=== PATIENT | male | born 1995 | race Caucasian/White ===

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

== ENCOUNTER 2017-03-29 18:19 | Inpatient (IN) | payer OTHER ==
[~2017-03-29] VITALS: Ht 172.7 cm; Wt 58.2 kg
[2017-03-29 18:56] LABS: POTASSIUM 3.5 mEq/L (3.7-5.4)
[2017-03-29 19:05] LABS: MCH 30.8 PG (29.0-34.0); MCHC 33.9 G/DL (30.0-36.0); MCV 90.7 FL (86-99); MEAN PLAT.VOLUME 11.8 uM^3 (9.0-12.4); PLATELET COUNT 163 K/uL (156-360); RBC DIS.WIDTH-CV 12.3 % (11.8-14.6); RBC DIS.WIDTH-SD 40.5 % (39-53); RED BLOOD COUNT 4.52 M/uL (4.00-5.50); WHITE BLOOD COUNT 8.2 K/uL (4.1-10.2)
[2017-03-29 19:14] LABS: CHLORIDE 105 mEq/L (99-109); POTASSIUM 3.6 mEq/L (3.7-5.4); SODIUM 140 mEq/L (136-147)
[2017-03-29 19:16] LABS: GLUCOSE 96 mg/dL (70-99)
[2017-03-29 19:17] LABS: ANION GAP 13 MEQ/L (2-14)
[2017-03-29 19:18] LABS: TOTAL BILIRUBIN 0.4 mg/dL (0.0-1.0)
[2017-03-29 19:19] LABS: SERUM ETHYL ALCOHOL < 10 mg/dL
[2017-03-29 19:20] LABS: GFR ESTIMATE (CALCULATED) > 59 mL/min/ (58.99-99999)
[2017-03-29 19:21] LABS: ALKALINE PHOSPHATASE 147 IU/L (3-129)
[2017-03-29 19:22] LABS: UREA NITROGEN (BUN) 14 mg/dL (9-23)
[2017-03-29 19:23] LABS: SALICYLATE < 5.0 MG/DL (15-30)
[2017-03-29 20:00] LABS: MAGNESIUM 2.3 mg/dL (1.3-2.7)
[2017-03-29 22:57] LABS: BASE EXCESS 5.8 mEq/L (-3 to +3); BICARBONATE 29.8 mEq/L (22-26); CARBOXY HGB 3.7 % (0-5); COMMENTS - BLOOD GASES C+A+; DEVICE NC; METHEMOGLOBIN 0.9 % (0-1.5); O2 FLOW 3 L/MIN; PCO2 40 mm Hg (35-45); PO2 155 mm Hg (80-100); SITE RR; pH 7.48 (7.35-7.45)
[2017-03-30] VITALS (12 sets, daily range): BP systolic 79–123; BP diastolic 58–74
[2017-03-30 00:39] LABS: TROP-I INTERPRETATION NEGATIVE; TROPONIN-I < 0.01 ng/mL (0.0-0.30)
[2017-03-30] MEDS ORDERED: GABAPENTIN400 MG PO (00:51)
[2017-03-30] MEDS ORDERED: LAMOTRIGINE150 MG PO (00:52)
[2017-03-30] MEDS ORDERED: WELLBUTRIN XL150 MG PO (00:52)
[2017-03-30] MEDS ORDERED: CYMBALTA60 MG PO (00:54)
[2017-03-30] MEDS ORDERED: PROMETHAZINE HC25 M1 PO (00:56)
[2017-03-30] MEDS ORDERED: AMBIEN10 MG PO (00:57)
[2017-03-30] MEDS ORDERED: BUTALB-APAP-CA1 EACH PO (00:58)
[2017-03-30] MEDS ORDERED: METHADONE H5 MG/5 ML PO (01:01)
[2017-03-30 01:28] LABS: AMPHETAMINES QUANT VALUE 0 NG/ML; BARBITUATES QUANT VALUE 0 NG/ML; BENZODIAZEPINES QUANT VALUE 0 NG/ML; BENZODIAZEPINES, URINE SCREEN Negative (200 ng/mL); MARIJUANA QUANT VALUE 0 NG/ML; OPIATES QUANTITATIVE VALUE 0 NG/ML; PHENCYCLIDINE QUANT VALUE 0 NG/ML
[2017-03-30 04:45] LABS: HEMATOCRIT 33.6 % (38.0-50.0); MCH 30.2 PG (29.0-34.0); MCHC 33.3 G/DL (30.0-36.0); MCV 90.6 FL (86-99); RBC DIS.WIDTH-CV 12.3 % (11.8-14.6); RED BLOOD COUNT 3.71 M/uL (4.00-5.50); WHITE BLOOD COUNT 5.1 K/uL (4.1-10.2)
[2017-03-30 04:51] LABS: CHLORIDE 105 mEq/L (99-109); SODIUM 146 mEq/L (136-147)
[2017-03-30 04:53] LABS: GLUCOSE 100 mg/dL (70-99)
[2017-03-30 04:54] LABS: ANION GAP 8 MEQ/L (2-14)
[2017-03-30 04:57] LABS: GFR ESTIMATE (CALCULATED) > 59 mL/min/ (58.99-99999)
[2017-03-30 04:58] LABS: UREA NITROGEN (BUN) 8 mg/dL (9-23)
[2017-03-30 05:58] LABS: MEAN PLAT.VOLUME 11.5 uM^3 (9.0-12.4); PLAT.SUFFICIENCY DECREASED
[2017-03-30 06:01] LABS: PLATELET COUNT 111 K/uL (156-360)
[2017-03-30 10:11] LABS: METH RESISTANT S AUREUS PCR NEGATIVE (NEGATIVE)
[2017-03-30 10:27] LABS: PROBE CHECK PASS; SPECIMEN PROCESSING CONTROL PASS
[2017-03-31] VITALS: BP 123/65
[2017-03-31 04:00] VITALS: BP 116/62
[2017-03-31 07:00] VITALS: BP 128/80
[2017-03-31 09:22] LABS: ANION GAP 3 MEQ/L (2-14); CHLORIDE 109 MEQ/L (99-109); POTASSIUM 3.4 MEQ/L (3.7-5.4); SAMPLE HEMOLYSIS CHECK 0; SAMPLE ICTERIC CHECK 0; SAMPLE LIPEMIA CHECK 0; SODIUM 141 MEQ/L (136-147)
[2017-03-31 09:28] LABS: GFR ESTIMATE (CALCULATED) > 59 mL/min/ (58.99-99999); GLUCOSE 89 mg/dL (70-99); UREA NITROGEN (BUN) 5 mg/dL (9-23)
[2017-03-31 11:00] VITALS: BP 117/72
[2017-03-31 12:00] VITALS: BP 117/72
== END 2017-03-31 13:59 | disposition home or self-care (01) | DRG 918 ==
LOC: EME 18:19 → 4WEST 23:10 → EDOF 23:10 → ENRESERV 23:11 → EDOF 03-30 05:06 → 4WEST 03-30 06:51 → ENRESERV 03-30 06:53 → 4WEST 03-30 07:52 → ENRESERV 03-30 21:07 → CANRESERV 03-31 10:26 → ENRESERV 03-31 10:26 → 4WEST 03-31 13:59
PROVIDERS: Emergency Medicine; Hospitalist; Internal Medicine
DX: T50.901A Poisoning by unspecified drugs, medicaments and biological substances, accidental (unintentional), initial encounter (principal); F11.20 Opioid dependence, uncomplicated; F31.9 Bipolar disorder, unspecified; F41.9 Anxiety disorder, unspecified; Q25.1 Coarctation of aorta; F41.8 Other specified anxiety disorders; K21.9 Gastro-esophageal reflux disease without esophagitis; Z91.19 Patient's noncompliance with other medical treatment and regimen; F17.200 Nicotine dependence, unspecified, uncomplicated; J45.909 Unspecified asthma, uncomplicated; Z81.8 Family history of other mental and behavioral disorders
CPT/HCPCS: 36600; 71010; 80047; 80048; 80053; 80175 90; 80306 90; 82800; 82803; 83605; 83735; 84484; 85027; 87641; 93005; 99281; 99285; G0480; J1650; J3480; J7030; J7070

== ENCOUNTER 2017-04-01 16:54 | Emergency (ER) | payer OTHER ==
[~2017-04-01] VITALS: Ht 175.3 cm; Wt 60.4 kg
[~2017-04-01 16:54] MED LIST changes: +AMBIEN10 MG PO; +BUTALB-APAP-CA1 EACH PO; +CYMBALTA60 MG PO; +GABAPENTIN400 MG PO; +LAMOTRIGINE150 MG PO; +METHADONE H5 MG/5 ML PO; +PROMETHAZINE HC25 M1 PO; +WELLBUTRIN XL150 MG PO
[2017-04-01 19:18] LABS: EOSINOPHIL (%) 4.1 % (0-5); EOSINOPHIL COUNT 0.3 K/uL (0-0.3); HEMATOCRIT 35.1 % (38.0-50.0); IMMATURE GRANULOCYTE (%) 0.3 % (0.0-0.7); INSTRUMENT ABS NEUTROPHIL CT 4.8 K/uL; LYMPHOCYTE COUNT 1.5 K/uL (1.0-2.8); MCH 30.7 PG (29.0-34.0); MCHC 33.6 G/DL (30.0-36.0); MCV 91.4 FL (86-99); MEAN PLAT.VOLUME 11.9 uM^3 (9.0-12.4); MONOCYTE (%) 7.6 % (3-12); MONOCYTE COUNT 0.6 K/uL (0-0.8); NEUTROPHIL (%) 66.7 % (45-76); NEUTROPHIL COUNT 4.8 K/uL (1.8-6.4); PLATELET COUNT 128 K/uL (156-360); RBC DIS.WIDTH-CV 12.3 % (11.8-14.6); RBC DIS.WIDTH-SD 41.4 % (39-53); RED BLOOD COUNT 3.84 M/uL (4.00-5.50); WHITE BLOOD COUNT 7.3 K/uL (4.1-10.2)
[2017-04-01 19:31] LABS: CHLORIDE 108 mEq/L (99-109); POTASSIUM 3.9 mEq/L (3.7-5.4); SODIUM 143 mEq/L (136-147)
[2017-04-01 19:33] LABS: GLUCOSE 101 mg/dL (70-99)
[2017-04-01 19:34] LABS: ANION GAP 8 MEQ/L (2-14)
[2017-04-01 19:36] LABS: SERUM ETHYL ALCOHOL < 10 mg/dL
[2017-04-01 19:37] LABS: ALKALINE PHOSPHATASE 121 IU/L (3-129); GFR ESTIMATE (CALCULATED) > 59 mL/min/ (58.99-99999)
[2017-04-01 19:38] LABS: UREA NITROGEN (BUN) 8 mg/dL (9-23)
[2017-04-01 19:40] LABS: CREATINE KINASE 966 IU/L (1-294)
[2017-04-01 19:42] LABS: TOTAL BILIRUBIN 0.3 mg/dL (0.0-1.0)
[2017-04-01 19:45] LABS: AMPHETAMINE NEGATIVE (500 ng/mL); BARBITURATES NEGATIVE (200 ng/mL); BENZODIAZEPINES NEGATIVE (150 ng/mL); COCAINE NEGATIVE (150 ng/mL); INTERNAL CONTROLS VALID? YES; METHADONE PRESUMPTIVE POSITIVE (200 ng/mL); METHAMPHETAMINE NEGATIVE (500 ng/mL); OPIATES (MORPHINE) NEGATIVE (100 ng/mL); OXYCODONE NEGATIVE (100 ng/mL); PHENCYCLIDINE NEGATIVE (25 ng/mL); PROPOXYPHENE NEGATIVE (300 ng/mL); THC CANNABINOIDS NEGATIVE (50 ng/mL); TRICYCLIC ANTIDEPRESSANTS NEGATIVE (300 ng/mL)
[2017-04-01 21:38] VITALS: BP 107/77
== END 2017-04-01 21:40 | disposition home or self-care (01) ==
LOC: EME 16:54
PROVIDERS: Emergency Medicine
DX: R41.82 Altered mental status, unspecified (principal); E86.0 Dehydration; R51 Headache; K21.9 Gastro-esophageal reflux disease without esophagitis; J45.909 Unspecified asthma, uncomplicated; F41.9 Anxiety disorder, unspecified; F32.9 Major depressive disorder, single episode, unspecified; F31.9 Bipolar disorder, unspecified; R56.9 Unspecified convulsions; F17.200 Nicotine dependence, unspecified, uncomplicated; Z91.040 Latex allergy status; Z88.0 Allergy status to penicillin; Z88.1 Allergy status to other antibiotic agents; Z88.4 Allergy status to anesthetic agent
CPT/HCPCS: 70450; 80053; 82550; 85025; 99281; 99284; G0480; J1885; J7030

== ENCOUNTER 2017-10-27 09:48 | Emergency (ER) | payer OTHER ==
[~2017-10-27] VITALS: Ht 172.7 cm; Wt 67.3 kg
[2017-10-27 10:20] LABS: HEMATOCRIT 36.6 % (38.0-50.0); HEMOGLOBIN 12.3 G/DL (12.5-16.6); MCH 30.7 PG (29.0-34.0); MCHC 33.6 G/DL (30.0-36.0); MCV 91.3 FL (86-99); PLATELET COUNT 215 K/uL (156-360); RBC DIS.WIDTH-CV 12.8 % (11.8-14.6); RBC DIS.WIDTH-SD 42.1 % (39-53); RED BLOOD COUNT 4.01 M/uL (4.00-5.50); WHITE BLOOD COUNT 8.2 K/uL (4.1-10.2)
[2017-10-27 10:30] LABS: CHLORIDE 111 mEq/L (99-109); POTASSIUM 3.8 mEq/L (3.7-5.4); SODIUM 144 mEq/L (136-147)
[2017-10-27 10:31] LABS: GLUCOSE 84 mg/dL (70-99)
[2017-10-27 10:35] LABS: CREATININE 0.9 mg/dL (0.6-1.3); GFR ESTIMATE (CALCULATED) > 59 mL/min/ (58.99-99999)
[2017-10-27 10:36] LABS: UREA NITROGEN (BUN) 10 mg/dL (9-23)
[2017-10-27 10:43] LABS: TROP-I INTERPRETATION NEGATIVE; TROPONIN-I < 0.01 ng/mL (0.0-0.30)
[2017-10-27] MEDS ORDERED: NARCAN4 MG NS (11:10)
[2017-10-27 12:36] LABS: AMPHETAMINE NEGATIVE (500 ng/mL); COCAINE NEGATIVE (150 ng/mL); METHAMPHETAMINE NEGATIVE (500 ng/mL); OPIATES (MORPHINE) PRESUMPTIVE POSITIVE (100 ng/mL); PHENCYCLIDINE NEGATIVE (25 ng/mL); THC CANNABINOIDS NEGATIVE (50 ng/mL)
[2017-10-27 12:36] LABS: SERUM ETHYL ALCOHOL < 10 mg/dL
[2017-10-27 12:37] LABS: BARBITURATES NEGATIVE (200 ng/mL); BENZODIAZEPINES PRESUMPTIVE POSITIVE (150 ng/mL); BUPRENORPHINE NEGATIVE (10 ng/mL); METHADONE PRESUMPTIVE POSITIVE (200 ng/mL); OXYCODONE NEGATIVE (100 ng/mL); PROPOXYPHENE PRESUMPTIVE POSITIVE (300 ng/mL); TRICYCLIC ANTIDEPRESSANTS NEGATIVE (300 ng/mL)
[2017-10-27 14:06] LABS: BENZODIAZEPINES, URINE SCREEN POSITIVE (200 ng/mL)
[2017-10-27 19:10] VITALS: BP 124/69
== END 2017-10-27 19:25 | disposition home or self-care (01) ==
LOC: EME → EDBD 09:48 → EME 19:25
PROVIDERS: Emergency Medicine
DX: F11.20 Opioid dependence, uncomplicated (principal); F32.9 Major depressive disorder, single episode, unspecified; J45.909 Unspecified asthma, uncomplicated; F41.9 Anxiety disorder, unspecified; K21.9 Gastro-esophageal reflux disease without esophagitis; Z88.0 Allergy status to penicillin; F17.200 Nicotine dependence, unspecified, uncomplicated; Z91.040 Latex allergy status; Z88.8 Allergy status to other drugs, medicaments and biological substances
CPT/HCPCS: 71045; 80048; 84484; 84999; 85027; 90837; 93005; G0480; J2310; J7030

== ENCOUNTER 2017-11-23 11:38 | Emergency (ER) | payer OTHER ==
[~2017-11-23] VITALS: Ht 172.7 cm; Wt 62.5 kg
[~2017-11-23 11:38] MED LIST changes: +NARCAN4 MG NS
[2017-11-23 12:23] LABS: HEMATOCRIT 36.6 % (38.0-50.0); HEMOGLOBIN 12.4 G/DL (12.5-16.6); MCH 30.8 PG (29.0-34.0); MCHC 33.9 G/DL (30.0-36.0); PLATELET COUNT 170 K/uL (156-360); RBC DIS.WIDTH-CV 12.9 % (11.8-14.6); RBC DIS.WIDTH-SD 42.7 % (39-53); RED BLOOD COUNT 4.02 M/uL (4.00-5.50); WHITE BLOOD COUNT 9.2 K/uL (4.1-10.2)
[2017-11-23 12:26] LABS: APPEARANCE CLOUDY ((CLEAR)); BILIRUBIN NEGATIVE; BLOOD SMALL; COLOR YELLOW ((YELLOW)); GLUCOSE (STRIP) NEGATIVE; KETONES NEGATIVE; LEUKOCYTES LARGE; NITRITE NEGATIVE; PROTEIN (STRIP) NEGATIVE; SPECIFIC GRAVITY 1.006 (1.000-1.030); UROBILINOGEN 0.2 MG/DL (0.2-1.0)
[2017-11-23 12:42] LABS: AMPHETAMINE NEGATIVE (500 ng/mL); BARBITURATES NEGATIVE (200 ng/mL); BENZODIAZEPINES NEGATIVE (150 ng/mL); BUPRENORPHINE NEGATIVE (10 ng/mL); COCAINE NEGATIVE (150 ng/mL); METHADONE PRESUMPTIVE POSITIVE (200 ng/mL); METHAMPHETAMINE NEGATIVE (500 ng/mL); OPIATES (MORPHINE) NEGATIVE (100 ng/mL); OXYCODONE NEGATIVE (100 ng/mL); PHENCYCLIDINE NEGATIVE (25 ng/mL); PROPOXYPHENE NEGATIVE (300 ng/mL); THC CANNABINOIDS PRESUMPTIVE POSITIVE (50 ng/mL); TRICYCLIC ANTIDEPRESSANTS NEGATIVE (300 ng/mL)
[2017-11-23 12:56] LABS: EPITHELIAL CELLS NONE SEEN /HPF; MUCUS NONE SEEN /LPF
[2017-11-23 12:57] LABS: BACTERIA 3+ /HPF; RED BLOOD CELLS NONE SEEN /HPF (0-5); WHITE BLOOD CELLS TNTC /HPF (0-5)
[2017-11-23 12:57] LABS: ALBUMIN 4.4 G/DL (3.2-4.8); CHLORIDE 109 MEQ/L (99-109); POTASSIUM 3.3 MEQ/L (3.7-5.4); SODIUM 145 MEQ/L (136-147); TOTAL BILIRUBIN 0.4 MG/DL (0.0-1.0)
[2017-11-23 13:05] LABS: ALKALINE PHOSPHATASE 103 IU/L (3-129); ALT (GPT) 21 IU/L (3-49); AST (GOT) 71 IU/L (2-34); CREATININE 0.8 MG/DL (0.6-1.3); GFR ESTIMATE (CALCULATED) > 59 mL/min/ (58.99-99999); GLUCOSE 94 mg/dL (70-99); SERUM ETHYL ALCOHOL < 10 mg/dL; TOTAL PROTEIN 6.3 G/DL (6.4-8.3); UREA NITROGEN (BUN) 10 mg/dL (9-23)
[2017-11-23] MEDS ORDERED: NARCAN4 MG NS (15:52)
[2017-11-23] MEDS ORDERED: BACTRIM,SEPT1 TABLET PO (15:52)
[2017-11-23 18:19] VITALS: BP 135/74
== END 2017-11-23 18:42 | disposition home or self-care (01) ==
LOC: EME 11:38
PROVIDERS: Emergency Medicine
DX: N39.0 Urinary tract infection, site not specified (principal); T40.691A Poisoning by other narcotics, accidental (unintentional), initial encounter; F19.20 Other psychoactive substance dependence, uncomplicated; K21.9 Gastro-esophageal reflux disease without esophagitis; J45.909 Unspecified asthma, uncomplicated; F31.9 Bipolar disorder, unspecified; F41.9 Anxiety disorder, unspecified; F32.9 Major depressive disorder, single episode, unspecified; R56.9 Unspecified convulsions; F17.200 Nicotine dependence, unspecified, uncomplicated; Z91.040 Latex allergy status; Z88.0 Allergy status to penicillin; Z88.1 Allergy status to other antibiotic agents; Z88.4 Allergy status to anesthetic agent
CPT/HCPCS: 80053; 81003; 82948; 84999; 85027; 99281; 99285; G0480; J7030